=== PATIENT | male | born 1990 | race Caucasian/White ===

== ENCOUNTER 2020-06-15 19:04 | Emergency (ER) | payer SELFPAY ==
[~2020-06-15] VITALS: Ht 182.9 cm; Wt 65.8 kg
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
[2020-06-15] MEDS ORDERED: TDAP [DIPH/PERTUSSIS/TET] 0.5 ML VIAL IM ONE ×2 (19:30→19:31)
--- NOTE | 2020-06-15 19:31 | NUR ---
EMT AT BEDSIDE FOR WOUND CARE
--- NOTE | 2020-06-15 19:32 | NUR ---
RADIOLOGY AT BEDSIDE
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
[2020-06-15 20:41] VITALS: BP 128/79
--- NOTE | 2020-06-15 21:20 | NUR ---
Patient discharged to home in stable condition. Written and verbal after care instructions given. Patient verbalizes understanding of instruction. Pt ambualted with steady gait. vss.
== END 2020-06-15 21:20 | disposition home or self-care (01) ==
LOC: ER 19:17
DX: S62.231A Other displaced fracture of base of first metacarpal bone, right hand, initial encounter for closed fracture (principal); S80.02XA Contusion of left knee, initial encounter; S80.01XA Contusion of right knee, initial encounter; S90.32XA Contusion of left foot, initial encounter; S90.31XA Contusion of right foot, initial encounter; V19.9XXA Pedal cyclist (driver) (passenger) injured in unspecified traffic accident, initial encounter; Y93.89 Activity, other specified; Y92.89 Other specified places as the place of occurrence of the external cause; Y99.8 Other external cause status
CPT/HCPCS: 29125; 73110; 73630; 90471; 90715; 99284; A6403